=== PATIENT | male | born 1975 | race Caucasian/White ===

== ENCOUNTER 2017-01-15 21:33 | Emergency (ER) | payer SELFPAY ==
[~2017-01-15] VITALS: Ht 182.9 cm; Wt 76.0 kg
[~2017-01-15 21:33] MED LIST: BACTDS PO; CEPH-443 PO
[2017-01-15 21:36] VITALS: Ht 182.9 cm; Wt 76.0 kg
[2017-01-15] MEDS ORDERED: HYDROCODONE/APAP (5/325) TAB PO ONE (22:30)
[2017-01-15] MEDS ORDERED: LIDOCAINE 1% (MDV) 20 ML INJ SC ONE (22:30)
--- NOTE | 2017-01-15 23:14 | ERA ---
ER Documentation Chief Complaint Date/Time DATE: 01/15/17 TIME: 23:11 Chief Complaint left thumb injury hit w/ a hummer HPI 41-year-old male presenting one day status post hammer versus left thumb. Patient states that the pain is 7 out of 10. Worse when the pressure is applied. Has taken ibuprofen and acetaminophen without relief. Has used a hot needle for at home do it yourself electrocautery without relief. Denies any other injuries or complaints. Nursing notes have been reviewed and are consistent with history given. ROS All systems reviewed and are negative except as per history of present illness. Medications Home Meds Active Scripts Hydrocodone/Acetaminophen ([place] 5-325 Tablet) 1 Each Tablet, 1 TAB PO Q6H Y for PAIN, #7 TAB Prov:ARLYN OROZCO PA-C 01/15/17 Cephalexin* (Keflex*) 500 Mg Capsule, 500 MG PO QID for 10 Days, CAP Prov:ROLANDO NOLAN DO 02/07/16 Sulfamethoxazole-Trimethoprim* (Bactrim* DS) 800-160 Mg Tab, 1 TAB PO BID for 10 Days, TAB Prov:ROLANDO NOLAN DO 02/07/16 Allergies Allergies: Coded Allergies: No Known Allergy (Unverified , 02/07/16) PMhx/Soc History of Surgery: Yes (right femur repair) Anesthesia Reaction: No Hx Neurological Disorder: No Hx Respiratory Disorders: No Hx Cardiac Disorders: No Hx Psychiatric Problems: No Hx Miscellaneous Medical Probl: No Hx Alcohol Use: Yes (occassional) Hx Substance Use: No Hx Tobacco Use: No Smoking Status: Never smoker Physical Exam Vitals Vital Signs Date Time Temp Pulse Resp B/P Pulse Ox O2 Delivery O2 Flow Rate FiO2 01/15/17 21:36 97.5 80 20 139/87 100 Physical Exam Const: [] Head: Atraumatic Eyes: Normal Conjunctiva ENT: Normal External Ears, Nose and Mouth. Neck: Full range of motion..~ No meningismus. Resp: Clear to auscultation bilaterally Cardio: Regular rate and rhythm, no murmurs Abd: Soft, non tender, non distended. Normal bowel sounds Skin: No petechiae or rashes Back: No midline or flank tenderness Ext: Ulnar sided subungual hematoma of the left thumb. Neurovascularly intact. Cap refill less than 2 seconds. Neur: Awake and alert Psych: Normal Mood and Affect Results 24 hrs Current Medications Medications (Trade) Dose Ordered Sig/Jack Route PRN Reason Start Time Stop Time Status Last Admin Dose Admin Lidocaine (Xylocaine 1% (Mdv) 20 ml) 20 ml ONCE ONCE SC 01/15/17 22:30 01/15/17 22:31 DC Acetaminophen/ Hydrocodone Bitart ([place] (5/325)) 1 tab ONCE ONCE PO 01/15/17 22:30 01/15/17 22:31 DC 01/15/17 22:29 Procedures/MDM 41-year-old male presenting one day status post hammer versus left thumb. [place] was given in the ED with relief of symptoms. Patient refused x-ray. Digital block was achieved with 3 mL of lidocaine without epi. Electrocautery was used at the edge of the nail bed. Approximately 1 mL of blood was evacuated. Symptoms improved. Most likely diagnosis is subungual hematoma 1 day status post finger injury. I have no suspicion for flexor tenosynovitis, infection, compartment syndrome, or other neurovascular compromise. Patient will be given [place] at home. Tetanus status up-to-date. No antibiotics indicated at this time. I have spoke with the patient regarding their condition and future management. They have verbally responded that they understand their status and treatment plan. The patients vitals are stable, and their current condition is appropriate for discharge. The patient will be given discharge instructions with return precautions. Discharge medication: [place] 5/325 mg p.o. as needed Departure Diagnosis: Primary Impression: Finger injury Qualified Code: S69.92XA - Injury of finger of left hand, initial encounter Additional Impression: Pain of finger Qualified Code: M79.645 - Pain of finger of left hand Condition: Stable Additional Instructions: Follow up with your PCP within the next 1-3 days for a more thorough evaluation and a possible referral to a specialist. Return the the emergency department immediately if symptoms worsen or change. If you have any questions regarding medications, ask your pharmacist or us before you leave. If any adverse reactions occur while taking your medications, discontinue the treatment and return to the emergency department immediately. Take your medications as directed, and complete the entire course of treatment. ARLYN OROZCO PA-C Jan 15, 2017 23:14
[2017-01-15] MEDS ORDERED: HYDR-906 PO (23:15)
== END 2017-01-15 23:44 | disposition home or self-care (01) ==
LOC: FTE 21:33
DX: S69.92XA Unspecified injury of left wrist, hand and finger(s), initial encounter (principal); W27.0XXA Contact with workbench tool, initial encounter; Y92.9 Unspecified place or not applicable

== ENCOUNTER 2018-10-24 09:18 | Emergency (ER) | payer OTHER ==
[~2018-10-24] VITALS: Ht 182.9 cm; Wt 82.9 kg
[~2018-10-24 09:18] MED LIST changes: +HYDR-4011 PO
[2018-10-24 09:24] VITALS: BP 159/79; PULSE 105; RESP 16; Ht 182.9 cm; Wt 82.9 kg
[2018-10-24] MEDS ORDERED: KETOROLAC 30 MG INJ IM STA (09:51)
[2018-10-24] MEDS ORDERED: MED4DP PO (10:53)
--- NOTE | 2018-10-24 10:55 | ERD ---
ER Documentation Chief Complaint Chief Complaint left foot pain and swelling x 5 days. unknown cause HPI 43-year-old male presented to ED for left foot pain x4 days. Patient states he has trouble walking in the morning and states this is happened one other time but it was in his other foot and went away. Patient denies any past medical history. States he is not allergic to any medications. Patient rates the pain a 6 out of 10 and cannot recall any traumatic event or injury that he did to his foot. ROS All systems reviewed and are negative except as per history of present illness. Medications Home Meds Active Scripts Methylprednisolone* (Medrol* DOSE PACK) 4 Mg/Dose-Pack Tab.ds.pk, 4 MG PO . DIRECTED for 10 Days, PACKET Prov:KRISH TORRE PA-C 10/24/18 Hydrocodone/Acetaminophen ([place] 5-325 Tablet) 1 Each Tablet, 1 TAB PO Q6H PRN for PAIN, #7 TAB Prov:ARLYN OROZCO PA-C 01/15/17 Cephalexin* (Keflex*) 500 Mg Capsule, 500 MG PO QID for 10 Days, CAP Prov:ROLANDO NOLAN DO 02/07/16 Sulfamethoxazole-Trimethoprim* (Bactrim* DS) 800-160 Mg Tab, 1 TAB PO BID for 10 Days, TAB Prov:ROLANDO NOLAN DO 02/07/16 Allergies Allergies: Coded Allergies: No Known Allergy (Unverified , 02/07/16) PMhx/Soc History of Surgery: Yes (right femur repair) Anesthesia Reaction: No Hx Neurological Disorder: No Hx Respiratory Disorders: No Hx Cardiac Disorders: No Hx Psychiatric Problems: No Hx Miscellaneous Medical Probl: No Hx Alcohol Use: Yes (occassional) Hx Substance Use: No Hx Tobacco Use: No Smoking Status: Never smoker FmHx Family History: No diabetes, No coronary disease, No other Physical Exam Vitals Vital Signs Date Temp Pulse Resp B/P (MAP) Pulse Ox O2 O2 Flow FiO2 Time Delivery Rate 10/24/18 97.8 105 16 159/79 97 09:24 (105) Physical Exam Const: No acute distress Head: Atraumatic Eyes: Normal Conjunctiva ENT: Normal External Ears, Nose and Mouth. Neck: Full range of motion. No meningismus. Resp: Clear to auscultation bilaterally Cardio: Regular rate and rhythm, no murmurs Abd: Soft, non tender, non distended. Normal bowel sounds Skin: No petechiae or rashes Back: No midline or flank tenderness Ext: No cyanosis, or edema, left foot is tender to palpation on the anterior surface of his foot no signs of deformities, ecchymosis, contusions patient is neurovascularly intact he can wiggle his toes he has good sensation and pulses are equal in bilateral Neur: Awake and alert Psych: Normal Mood and Affect Results 24 hrs Current Medications Medications Dose Sig/Jack Start Time Status Last (Trade) Ordered Route PRN Stop Time Admin Dose Reason Admin Ketorolac 30 mg ONCE STAT 10/24/18 DC 10/24/18 Tromethamine IM 09:51 10/24/18 10:00 (Toradol) 09:52 Procedures/MDM Diagnostic imaging: Read by radiologist PROCEDURE: XR Foot. CLINICAL INDICATION: Pain TECHNIQUE: AP, lateral and oblique views of the left foot was obtained. The images were reviewed on a PACS workstation. COMPARISON: None. FINDINGS: The bones of the foot appear intact, with no evidence of fracture, dislocation, or subluxation. The joint spaces are preserved. The bone mineralization is normal. No significant soft tissue swelling is seen. RPTAT: AA IMPRESSION: Unremarkable left foot radiographs. .Brendan Weeks MD, MD Date Time Electronically viewed and signed by .Brendan Weeks MD, MD on 10/24/2018 10:49 Medications given in ER: Toradol Patient tolerated medication well with no adverse reactions. Patient reported improvement in pain. Medical decision making: Is a 43-year-old male presented to ED for left foot pain. Physical exam showed mild pain to palpation on the anterior aspect of his left foot. No signs of deformity contusions or crepitus. Patient is able to ambulate with pain. Patient presented to the ER with his own crutches. Patient states this happened one other time in his right foot and eventually went away. Patient remained neurovascular intact he was sent for x-rays of the left lower extremity which indicated no signs of fracture. The patient reports improvement in pain with a Toradol injection. At this time I have low suspicion for compartment syndrome, fracture, neurovascular injury. The patient has his own crutches and is going to use those for departing the ED. I advised the patient that he needs follow- up with his primary care provider regarding this visit. If symptoms worsen I told him to return to ER immediately. Patient is in agreement to treatment plan had no further questions upon discharge Prescription for home: Medrol Dosepak I have discussed with the patient proper use and common side effects to expert with the medication . I advised the patient/family to speak with the pharmacist dispensing the medication to be advised of any potential drug interactions with other medication or supplements they may be taking. Discharge: At this time, patient is stable for discharge and outpatient management. I have instructed the patient to follow-up with his\her primary care physician in 1 to 2 days. I have discussed with the patient the possibility of needing to see a specialist for further work-up and imaging studies if symptoms persist. I have instructed the patient to promptly return to the ER for any new or worsening symptoms including increased pain, fever, nausea, vomiting, weakness or LOC. The patient and\or family expressed understanding of and agreement with this plan. All questions were answered. Home care instructions were provided. Disclaimer: Inadvertent spelling and grammatical errors are likely due to EHR\dictation software use and do not reflect on the overall quality of patient care. Also, please note that the electronic time recorded on the note does not necessarily reflect the actual time of the patient encounter. Departure Diagnosis: Primary Impression: Foot pain Laterality: left Qualified Codes: M79.672 - Pain in left foot Additional Impression: Plantar fasciitis, left Condition: Stable Patient Instructions: Plantar Fasciitis Referrals: [facility] YOU HAVE RECEIVED A MEDICAL SCREENING EXAM AND THE RESULTS INDICATE THAT YOU DO NOT HAVE A CONDITION THAT REQUIRES URGENT TREATMENT IN THE EMERGENCY DEPARTMENT. FURTHER EVALUATION AND TREATMENT OF YOUR CONDITION CAN WAIT UNTIL YOU ARE SEEN IN YOUR DOCTORS OFFICE WITHIN THE NEXT 1-2 DAYS. IT IS YOUR RESPONSIBILITY TO MAKE AN APPOINTMENT FOR FOLOW-UP CARE. IF YOU HAVE A PRIMARY DOCTOR --you should call your primary doctor and schedule an appointment IF YOU DO NOT HAVE A PRIMARY DOCTOR YOU CAN CALL OUR PHYSICIAN REFERRAL HOTLINE AT IF YOU CAN NOT AFFORD TO SEE A PHYSICIAN YOU CAN CHOSE FROM THE FOLLOWING [facility] [address] [facility]. [facility] [address] [facility] [address] [facility] [address] [facility] [address] [facility]. [facility] [address] [facility]. [facility] YOU HAVE RECEIVED A MEDICAL SCREENING EXAM AND THE RESULTS INDICATE THAT YOU DO NOT HAVE A CONDITION THAT REQUIRES URGENT TREATMENT IN THE EMERGENCY DEPARTMENT. FURTHER EVALUATION AND TREATMENT OF YOUR CONDITION CAN WAIT UNTIL YOU ARE SEEN IN YOUR DOCTORS OFFICE WITHIN THE NEXT 1-2 DAYS. IT IS YOUR RESPONSIBILITY TO MAKE AN APPOINTMENT FOR FOLOW-UP CARE. IF YOU HAVE A PRIMARY DOCTOR --you should call your primary doctor and schedule and appointment IF YOU DO NOT HAVE A PRIMARY DOCTOR YOU CAN CALL OUR PHYSICIAN REFERRAL HOTLINE AT . IF YOU CAN NOT AFFORD TO SEE A PHYSICIAN YOU CAN CHOSE FROM THE FOLLOWING [facility] INSTITUTIONS: [facility] [address] [place] [address] [facility] [address] [place] [address] [facility] [address] [place] [address] Additional Instructions: Call your primary care doctor TOMORROW for an appointment during the next 1-2 days.See the doctor sooner or return here if your condition worsens before your appointment time. KRISH TORRE PA-C Oct 24, 2018 10:55
== END 2018-10-24 10:59 | disposition home or self-care (01) ==
LOC: FTE 09:18
DX: M72.2 Plantar fascial fibromatosis (principal)
CPT/HCPCS: 73630; 96372; 99284; J1885